=== PATIENT | male | born 1985 | race Caucasian/White ===

== ENCOUNTER 2020-09-20 10:39 | Emergency (ER) | payer SELFPAY ==
--- NOTE | 2020-09-20 11:17 | EDM.PDOC ---
ED HPI GENERAL MEDICAL PROBLEM - General Chief Complaint: Abdominal Pain Stated Complaint: STOMACH PAIN Time Seen by Provider: 09/20/20 11:05 Source of Information: Reports: Patient, Old Records, RN History Limitations: Reports: No Limitations - History of Present Illness INITIAL COMMENTS - FREE TEXT/NARRATIVE: 35 yo male here with intermittent abdominal pain today. Pain is now gone. Had nausea earlier. No fever. Was not seen in the clinic. No pHx of any abdominal surgeries. Onset: Today Onset Date: 09/20/20 Duration: Hour(s):, Intermittent, Resolved Prior to Arrival Location: Reports: Abdomen Quality: Reports: Sharp Severity: Severe Improves with: Reports: Other (unknown) Worsens with: Reports: Other (unknown) Context: Reports: Other (See HPI) Associated Symptoms: Reports: Nausea/Vomiting (no vomiting). Denies: Fever/Chills Treatments FABRICATION LEAD: Reports: Other (see below) (none) - Related Data Allergies Allergy/AdvReac Type Severity Reaction Status Date / Time No Known Allergies Allergy Verified 09/20/20 11:01 Home Meds: Home Meds NK [No Known Home Meds] 09/20/20 [History] ED ROS GENERAL - Review of Systems Review Of Systems: See Below Constitutional: Reports: No Symptoms HEENT: Reports: No Symptoms Respiratory: Reports: No Symptoms Cardiovascular: Reports: No Symptoms GI/Abdominal: Reports: Abdominal Pain, Nausea. Denies: Vomiting Musculoskeletal: Reports: No Symptoms Skin: Reports: No Symptoms Neurological: Reports: No Symptoms ED EXAM, GI/ABD - Physical Exam Exam: See Below Exam Limited By: No Limitations General Appearance: Alert, WD/WN, No Apparent Distress Eyes: Bilateral: Normal Appearance Ears: Normal External Exam, Normal Canal, Hearing Grossly Normal Nose: Normal Inspection, No Blood Throat/Mouth: Normal Inspection, Normal Lips, Normal Oropharynx, Normal Voice, No Airway Compromise Head: Atraumatic, Normocephalic Neck: Normal Inspection Respiratory/Chest: No Respiratory Distress, Lungs Clear, Normal Breath Sounds, Chest Non-Tender Cardiovascular: Regular Rate, Rhythm, No Edema GI/Abdominal Exam: Normal Bowel Sounds, Soft, Non-Tender, No Distention Back Exam: Normal Inspection. No: CVA Tenderness (R), CVA Tenderness (L) Extremities: Normal Inspection, Normal Range of Motion, Non-Tender, No Pedal Edema Neurological: Alert, Oriented, CN II-XII Intact, Normal Cognition, No Motor/Sensory Deficits Psychiatric: Normal Affect, Normal Mood Skin Exam: Warm, Dry, Intact, Normal Color, No Rash Course - Orders/Labs/Meds Orders: Active Orders 24 hr Category Date Time Status Abdomen 1V Flat [CR] Stat Exams 09/20/20 11:09 Taken Abdomen 2V AP Flat Upright [CR] Stat Exams 09/20/20 11:43 Ordered Meds: Medications Discontinued Medications Generic Name Dose Route Start Last Admin Trade Name Ilya PRN Reason Stop Dose Admin Simethicone 160 mg 09/20/20 11:42 09/20/20 11:54 Simethicone PO 09/20/20 11:43 160 mg NOW STA Administration - Radiology Interpretation Free Text/Narrative:: Flat/upright abdominal [id number] present Departure - Departure Time of Disposition: 12:05 Disposition: Home, Self-Care 01 Condition: Fair Clinical Impression: Adynamic ileus - Discharge Information *PRESCRIPTION DRUG MONITORING PROGRAM REVIEWED*: Not Applicable *COPY OF PRESCRIPTION DRUG MONITORING REPORT IN PATIENT PEEWEE: Not Applicable Instructions: Abdominal Pain, Adult, [id number] Forms: ED Department Discharge Additional Instructions: Acetaminophen may be used for pain relief. Sips of Gatorade only today. When you feel hungry(tomorrow?) advance diet very slowly. Recheck here or with your doctor if not improving or worse. - My Orders Last 24 Hours: My Active Orders 09/20/20 11:09 Abdomen 1V Flat [CR] Stat 09/20/20 11:43 Abdomen 2V AP Flat Upright [CR] Stat - Assessment/Plan Last 24 Hours: My Active Orders 09/20/20 11:09 Abdomen 1V Flat [CR] Stat 09/20/20 11:43 Abdomen 2V AP Flat Upright [CR] Stat
[2020-09-20] MEDS ORDERED: Simethicone 80 MG Tab.Chew PO STA (11:42)
--- NOTE | 2020-09-20 12:11 | CR ---
INDICATION: Abdomen pain, increased gas. ABDOMEN TWO VIEW: Five images of the abdomen were obtained in supine and upright projections 09/20/20 - no comparison. Air-fluid levels are noted in the distal small bowel and colon. The appearance if felt to be most compatible with gastroenteritis although an earlier partial distal large bowel obstruction is difficult to entirely exclude. This should be correlated clinically. No evidence of free air or definite mechanically obstructive process was seen. No organomegaly or mass lesions or pathologic calcifications were noted. IMPRESSION: Findings felt to be most compatible with gastroenteritis, although a paralytic ileus or very early distal colonic obstructive process of mechanical nature is difficult to entirely exclude without serial images. MTDD
== END 2020-09-20 12:28 | disposition home or self-care (01) ==
LOC: FB.ED 10:39
DX: K56.0 Paralytic ileus (principal)
CPT/HCPCS: 74019; 99282; 99284; A9270-GY